=== PATIENT | male | born 1980 | race Two or more races ===

== ENCOUNTER → 2019-01-21 | Emergency (ER) | payer OTHER ==
[~2019-01-21] VITALS: Ht 175.3 cm; Wt 81.6 kg
[~2019-01-21] MED LIST: TRIUMEQ TABLET1 EACH; ZITHROMAX500 MG
== END | disposition left against medical advice (07) ==
LOC: ER 03:10
DX: Z53.20 Procedure and treatment not carried out because of patient's decision for unspecified reasons (principal)

== ENCOUNTER 2020-04-26 08:35 | Emergency (ER) | payer OTHER ==
[~2020-04-26] VITALS: Ht 175.3 cm; Wt 81.6 kg
[2020-04-26] MEDS ORDERED: EPZICOM TABLET1 EACH PO (08:45)
== END 2020-04-26 09:13 | disposition home or self-care (01) ==
LOC: ER 08:35
DX: B20 Human immunodeficiency virus [HIV] disease (principal); G47.09 Other insomnia; F41.8 Other specified anxiety disorders

== ENCOUNTER 2020-05-03 13:33 | Emergency (ER) | payer OTHER ==
[~2020-05-03] VITALS: Ht 175.3 cm; Wt 83.9 kg
[~2020-05-03 13:33] MED LIST changes: +EPZICOM TABLET1 EACH PO
[2020-05-03] MEDS ORDERED: RISPERDAL0.5 MG PO (14:18)
[2020-05-03] MEDS ORDERED: AMBIEN10 MG PO (14:19)
[2020-05-03] MEDS ORDERED: KETO10TA2 PO (16:23)
[2020-05-03] MEDS ORDERED: VISTARIL50 MG PO (16:23)
== END 2020-05-03 16:49 | disposition home or self-care (01) ==
LOC: ER 13:33
DX: G44.209 Tension-type headache, unspecified, not intractable (principal); F41.8 Other specified anxiety disorders

== ENCOUNTER → 2022-04-23 | Emergency (ER) | payer OTHER ==
[~2022-04-23] VITALS: Ht 175.3 cm; Wt 88.5 kg
[~2022-04-23] MED LIST changes: +AMBIEN10 MG PO; +KETO10TA2 PO; +RISPERDAL0.5 MG PO; +VISTARIL50 MG PO
== END | disposition home or self-care (01) ==
LOC: ER 13:03
DX: S91.312A Laceration without foreign body, left foot, initial encounter (principal); X58.XXXA Exposure to other specified factors, initial encounter; Y93.9 Activity, unspecified; Y92.89 Other specified places as the place of occurrence of the external cause; Y99.9 Unspecified external cause status

== ENCOUNTER 2022-04-26 23:05 | Emergency (ER) | payer OTHER ==
[~2022-04-26] VITALS: Ht 175.3 cm; Wt 76.7 kg
[2022-04-27] MEDS ORDERED: KETO10TA2 PO (01:55)
== END 2022-04-27 02:02 ==
LOC: ER 23:05
DX: S91.322A Laceration with foreign body, left foot, initial encounter (principal)

== ENCOUNTER 2022-05-15 09:56 | Emergency (ER) | payer OTHER ==
[~2022-05-15] VITALS: Ht 175.3 cm; Wt 90.7 kg
== END 2022-05-15 16:40 ==
LOC: ER 09:56
DX: Z48.02 Encounter for removal of sutures (principal)

== ENCOUNTER 2022-07-08 15:54 | Emergency (ER) | payer OTHER ==
[~2022-07-08] VITALS: Ht 175.3 cm; Wt 90.7 kg
== END 2022-07-08 21:51 | disposition home or self-care (01) ==
LOC: ER 15:54
DX: B34.8 Other viral infections of unspecified site (principal)

== ENCOUNTER 2023-11-07 19:13 | Emergency (ER) | payer OTHER ==
[~2023-11-07] VITALS: Ht 167.6 cm; Wt 92.1 kg
== END 2023-11-07 21:38 | disposition home or self-care (01) ==
LOC: ER 19:15
DX: G24.3 Spasmodic torticollis (principal)